=== PATIENT | female | born 1955 | race Caucasian/White ===

== ENCOUNTER 2018-01-14 12:36 | Inpatient (IN) | payer OTHER ==
[~2018-01-14] VITALS: Ht 172.7 cm; Wt 83.5 kg
[2018-01-14 13:38] LABS: BASOPHIL % 0.5 % (0-2); PLATELET COUNT 275 x10^3mcL (130-400); RED CELL DISTRIBUTION WIDTH 13.2 % (11.5-14.5)
[2018-01-14 13:48] LABS: CALCIUM 8.9 mg/dL (8.5-10.1); CARBON DIOXIDE 27.3 mmol/L (21-32); CHLORIDE SERUM 105 mmol/L (98-107); CREATININE SERUM 0.8 mg/dL (0.6-1.0); GFR1 > 60 mL/min; GLUCOSE SERUM 92 mg/dL (74-106); POTASSIUM SERUM 3.6 mmol/L (3.5-5.1); SODIUM SERUM 141 mmol/L (136-145)
[2018-01-14 13:53] LABS: ALBUMIN 3.6 g/dL (3.4-5.0); ALKALINE PHOSPHATASE 67 U/L (46-116); ALT/SGPT 32 U/L (14-59); AST/SGOT 20 U/L (15-37); BILIRUBIN TOTAL 0.61 mg/dL (0.20-1.00); LIPASE 86 IU/L (73-393); TOTAL PROTEIN, SERUM 7.3 g/dL (6.4-8.2)
[2018-01-14 13:55] LABS: AMYLASE 17 U/L (25-115)
[2018-01-14] MEDS ORDERED: SIMVASTATIN20 M1 PO (15:38)
[2018-01-14 16:13] LABS: MAGNESIUM 2.3 mg/dL (1.8-2.4); PHOSPHOROUS 3.7 mg/dL (2.5-4.9)
[2018-01-14 16:19] LABS: CHOLESTEROL/HDL RATIO 2.9
[2018-01-14 16:20] LABS: T3 TOTAL 0.93 ng/mL
[2018-01-14 16:23] LABS: FREE T4 0.99 ng/dL (0.76-1.46); FREE THYROXINE INDEX 2.3 ug/dL (1.4-4.5); T4(THYROXINE) 7.8 ug/dL (4.7-13.3)
[2018-01-14 16:38] LABS: UA SPECIFIC GRAVITY 1.015 (1.005-1.035); microscopic required? YES; urine erythrocyte NEGATIVE (NEGATIVE)
[2018-01-14 16:45] VITALS: BP 99/44
[2018-01-14 16:47] LABS: AMPHETAMINE QUAL UR NONE DETECTED (See below)
[2018-01-14 21:00] VITALS: BP 118/62
[2018-01-15 04:51] VITALS: BP 110/62
[2018-01-15 08:50] VITALS: BP 122/62
[2018-01-15 16:14] VITALS: BP 131/70
[2018-01-15 20:31] VITALS: BP 125/65
[2018-01-16 02:00] VITALS: Ht 172.7 cm; Wt 83.5 kg
[2018-01-16 04:50] VITALS: BP 103/55
[2018-01-16 06:04] LABS: BASOPHIL % 0.3 % (0-2); PLATELET COUNT 235 x10^3mcL (130-400); RED CELL DISTRIBUTION WIDTH 13.2 % (11.5-14.5)
[2018-01-16 06:30] LABS: CALCIUM 8.2 mg/dL (8.5-10.1); CARBON DIOXIDE 22.8 mmol/L (21-32); CHLORIDE SERUM 109 mmol/L (98-107); CREATININE SERUM 0.6 mg/dL (0.6-1.0); GFR1 > 60 mL/min; GLUCOSE SERUM 86 mg/dL (74-106); MAGNESIUM 2.2 mg/dL (1.8-2.4); PHOSPHOROUS 3.1 mg/dL (2.5-4.9); POTASSIUM SERUM 3.2 mmol/L (3.5-5.1); SODIUM SERUM 141 mmol/L (136-145)
[2018-01-16 09:23] VITALS: BP 112/61
[2018-01-16 10:48] VITALS: BP 98/59
[2018-01-16] MEDS ORDERED: FLA500 PO (14:40)
[2018-01-16 14:51] VITALS: BP 98/59
== END 2018-01-16 15:30 | disposition home or self-care (01) | DRG 371 ==
LOC: ED 12:36 → MU 15:07
PROVIDERS: Emergency Medicine; Internal Medicine; Internal Medicine Gastroenterology
PROC: 0DBG8ZX Excision of Left Large Intestine, Via Natural or Artificial Opening Endoscopic, Diagnostic (ICD-10-PCS; principal; 2018-01-16 11:00)
DX: A04.72 Enterocolitis due to Clostridium difficile, not specified as recurrent (principal); N17.0 Acute kidney failure with tubular necrosis; N39.0 Urinary tract infection, site not specified; E78.5 Hyperlipidemia, unspecified; Z68.28 Body mass index [BMI] 28.0-28.9, adult
CPT/HCPCS: 45378; 83880; 84439; J1200; J1610; J1885; J2250; J2310; J2543; J3010; J3490; J7030; Q0092